=== PATIENT | male | born 1985 | race Caucasian/White ===

== ENCOUNTER 2017-03-14 13:29 | Emergency (ER) | payer OTHER ==
[2017-03-14] MEDS ORDERED: Ibuprofen 800 MG TAB ONE (13:57)
--- NOTE | 2017-03-14 14:25 | RAD ---
RIGHT FOOT 3 VIEWS: Date: 03/14/17 HISTORY: Right foot fracture, right foot pain. FINDINGS/IMPRESSION: There is a nondisplaced fracture involving the base of the 5th metatarsal. POS: [email or web address]
--- NOTE | 2017-03-14 14:26 | RAD ---
RIGHT ANKLE 3 VIEWS: Date: 03/14/17 HISTORY: Injury playing volleyball. FINDINGS: There is soft tissue swelling laterally. No fracture at the ankle. There is evidence of fracture inv olving the base of the 5th metatarsal. See dedicated foot exam. IMPRESSION: Fracture base 5th metatarsal. POS: [id number]
== END 2017-03-14 14:42 ==
LOC: NAV RAD 13:29 → NAV ERS 13:29 → EDSTATUS 13:42 → NAV ERS 14:42
DX: S92.351A Displaced fracture of fifth metatarsal bone, right foot, initial encounter for closed fracture (principal); F31.9 Bipolar disorder, unspecified; Z87.891 Personal history of nicotine dependence; X50.1XXA Overexertion from prolonged static or awkward postures, initial encounter; Y93.68 Activity, volleyball (beach) (court)